=== PATIENT | female | born 1935 | race Caucasian/White ===

== ENCOUNTER 2018-08-02 18:14 | Inpatient (IN) | payer MEDICARE, OTHER ==
--- NOTE | 2018-08-02 18:42 | ED ---
General Adult HPI - General Chief complaint: Neuro Symptoms/Deficit Stated complaint: TIA Symptoms Time Seen by Provider: 08/02/18 18:27 Source: patient, EMS Mode of arrival: EMS Limitations: no limitations - History of Present Illness Initial comments: Dictation was produced using Truli dictation software. please excuse any grammatical, word or spelling errors. Chief Complaint: 83-year-old female presents with strokelike symptoms History of Present Illness: 83-year-old female she had cataract surgery early this morning patient is at home with family when at approximately 5:15 she had an episode of right upper extremity numbness, slurred speech and right facial droop. EMS was called right away. Upon EMS arrival her symptoms started which was approximately 15 minutes after time of onset. Patient has history of CVA in the past. Patient states that her symptoms are improved. Family bedside reports that she is acting at baseline. The ROS documented in this emergency department record has been reviewed and confirmed by me. Those systems with pertinent positive or negative responses have been documented in the HPI. All other systems are other negative and/or noncontributory. PHYSICAL EXAM: General Impression: Alert and oriented x3, not in acute distress HEENT: Normocephalic atraumatic, extra-ocular movements intact, pupils equal and reactive to light bilaterally, mucous membranes moist. Cardiovascular: Heart regular rate and rhythm, S1&S2 audible, no murmurs, rubs or gallops Chest: Lungs clear to auscultation bilaterally, no rhonchi, no wheeze, no rales Abdomen: Bowel sounds present, abdomen soft, non-tender, non-distended, no organomegaly Musculoskeletal: Pulses present and equal in all extremities, no peripheral edema Motor: no focal deficits noted Neurological: CN II-XII grossly intact, no focal motor or sensory deficits noted Skin: Intact with no visualized rashes Psych: Normal affect and mood ED course: 83-year-old female presents with coca presentation consistent with transient ischemic attack vital signs upon arrival are within acceptable limits. Patient is well-appearing at this time. NIH of 0. Given history of present illness strong clinical suspicion that patient experienced a transient ischemic attack given the localization of her symptoms. Concerned that she has transient ischemic attack affecting the left MCA distribution. Laboratory evaluation obtained. CBC, coag panel, metabolic panel is unremarkable. Urinalysis is positive for urinary tract infection. Patient did begin reporting left CVA tenderness. There is concern of pyelonephritis. Blood cultures obtained. Patient treated with ceftriaxone. Patient given aspirin. Patient to be admitted with neurology on consultation. Discussed patient case with Dr. Smith who will be accepting the admission. EKG interpretation: Ventricular rate 72, sinus rhythm,. Interval to 4, Q 72, QTc 442. No MI prolongation, no QTC prolongation, no ST or T-wave changes noted. Overall, this EKG is unremarkable - Related Data Home Medications Medication Instructions Recorded Confirmed Apixaban [Eliquis] 5 mg PO BID 08/02/18 08/02/18 Brimonidine Tartrate [Alphagan P 1 drop BOTH EYES BID 08/02/18 08/02/18 0.2% Ophth Soln] Cholecalciferol (Vitamin D3) 2,000 unit PO DAILY 08/02/18 08/02/18 [Vitamin D3] Dorzolamide 2% [Trusopt 2%] 1 drop BOTH EYES BID 08/02/18 08/02/18 Latanoprost Ophth [Xalatan 0.005%] 1 drop BOTH EYES HS 08/02/18 08/02/18 Losartan Potassium [Cozaar] 25 mg PO DAILY 08/02/18 08/02/18 Metoprolol Tartrate [Lopressor] 25 mg PO BID 08/02/18 08/02/18 Multivitamins, Thera [Multivitamin 1 tab PO DAILY 08/02/18 08/02/18 (formulary)] Simvastatin [Zocor] 20 mg PO HS 08/02/18 08/02/18 amLODIPine [Norvasc] 10 mg PO DAILY 08/02/18 08/02/18 metFORMIN HCL [Glucophage] 1,000 mg PO BID 08/02/18 08/02/18 Allergies Allergy/AdvReac Type Severity Reaction Status Date / Time SMITHA Inhibitors Allergy Unknown Verified 08/02/18 18:21 Review of Systems ROS Statement: Those systems with pertinent positive or pertinent negative responses have been documented in the HPI. ROS Other: All systems not noted in ROS Statement are negative. Past Medical History Past Medical History: Diabetes Mellitus, Hypertension Additional Past Medical History / Comment(s): TIAs History of Any Multi-Drug Resistant Organisms: None Reported Past Surgical History: Tubal Ligation Additional Past Surgical History / Comment(s): right cataract surgery Past Psychological History: No Psychological Hx Reported Smoking Status: Never smoker Past Alcohol Use History: None Reported Past Drug Use History: None Reported General Exam Limitations: no limitations Course Vital Signs 08/02/18 08/02/18 08/02/18 18:15 20:50 21:28 Temperature 97 F L 98 F Pulse Rate 72 65 Respiratory 18 16 Rate Blood Pressure 178/86 180/85 151/95 O2 Sat by Pulse 97 95 Oximetry Medical Decision Making - Lab Data Result diagrams: 08/02/18 18:55 08/02/18 19:54 Lab Results 08/02/18 08/02/18 08/02/18 Range/Units 18:55 18:55 18:55 WBC 7.3 (3.8-10.6) k/uL RBC 4.67 (3.80-5.40) m/uL Hgb 13.9 (11.4-16.0) gm/dL Hct 43.1 (34.0-46.0) % MCV 92.4 (80.0-100.0) fL MCH 29.9 (25.0-35.0) pg MCHC 32.3 (31.0-37.0) g/dL RDW 13.8 (11.5-15.5) % Plt Count 240 (150-450) k/uL Neutrophils % 59 % Lymphocytes % 29 % Monocytes % 6 % Eosinophils % 3 % Basophils % 1 % Neutrophils # 4.3 (1.3-7.7) k/uL Lymphocytes # 2.1 (1.0-4.8) k/uL Monocytes # 0.4 (0-1.0) k/uL Eosinophils # 0.2 (0-0.7) k/uL Basophils # 0.0 (0-0.2) k/uL PT 11.1 (9.0-12.0) sec INR 1.1 (<1.2) APTT 24.8 (22.0-30.0) sec Sodium (137-145) mmol/L Potassium (3.5-5.1) mmol/L Chloride (98-107) mmol/L Carbon Dioxide (22-30) mmol/L Anion Gap mmol/L BUN (7-17) mg/dL Creatinine (0.52-1.04) mg/dL Est GFR (CKD-EPI)AfAm (>60 ml/min/1.73 sqM) Est GFR (CKD-EPI)NonAf (>60 ml/min/1.73 sqM) Glucose (74-99) mg/dL Calcium (8.4-10.2) mg/dL Total Bilirubin (0.2-1.3) mg/dL AST (14-36) U/L ALT (9-52) U/L Alkaline Phosphatase (38-126) U/L Troponin I <0.012 (0.000-0.034) ng/mL Total Protein (6.3-8.2) g/dL Albumin (3.5-5.0) g/dL Urine Color Urine Appearance (Clear) Urine pH (5.0-8.0) Ur Specific [place] (1.001-1.035) Urine Protein (Negative) Urine Glucose (UA) (Negative) Urine Ketones (Negative) Urine Blood (Negative) Urine Nitrite (Negative) Urine Bilirubin (Negative) Urine Urobilinogen (<2.0) mg/dL Ur Leukocyte Esterase (Negative) Urine RBC (0-5) /hpf Urine WBC (0-5) /hpf Ur Squamous Epith Cells (0-4) /hpf Amorphous Sediment (None) /hpf Urine Bacteria (None) /hpf Hyaline Casts (0-2) /lpf Urine Mucus (None) /hpf 08/02/18 08/02/18 Range/Units 19:20 19:54 WBC (3.8-10.6) k/uL RBC (3.80-5.40) m/uL Hgb (11.4-16.0) gm/dL Hct (34.0-46.0) % MCV (80.0-100.0) fL MCH (25.0-35.0) pg MCHC (31.0-37.0) g/dL RDW (11.5-15.5) % Plt Count (150-450) k/uL Neutrophils % % Lymphocytes % % Monocytes % % Eosinophils % % Basophils % % Neutrophils # (1.3-7.7) k/uL Lymphocytes # (1.0-4.8) k/uL Monocytes # (0-1.0) k/uL Eosinophils # (0-0.7) k/uL Basophils # (0-0.2) k/uL PT (9.0-12.0) sec INR (<1.2) APTT (22.0-30.0) sec Sodium 137 (137-145) mmol/L Potassium 4.7 (3.5-5.1) mmol/L Chloride 108 H (98-107) mmol/L Carbon Dioxide 20 L (22-30) mmol/L Anion Gap 9 mmol/L BUN 18 H (7-17) mg/dL Creatinine 0.94 (0.52-1.04) mg/dL Est GFR (CKD-EPI)AfAm 65 (>60 ml/min/1.73 sqM) Est GFR (CKD-EPI)NonAf 56 (>60 ml/min/1.73 sqM) Glucose 132 H (74-99) mg/dL Calcium 9.9 (8.4-10.2) mg/dL Total Bilirubin 0.5 (0.2-1.3) mg/dL AST 26 (14-36) U/L ALT 9 (9-52) U/L Alkaline Phosphatase 68 (38-126) U/L Troponin I (0.000-0.034) ng/mL Total Protein 7.2 (6.3-8.2) g/dL Albumin 4.1 (3.5-5.0) g/dL Urine Color Light Yellow Urine Appearance Clear (Clear) Urine pH 5.5 (5.0-8.0) Ur Specific [place] 1.007 (1.001-1.035) Urine Protein Negative (Negative) Urine Glucose (UA) Negative (Negative) Urine Ketones Trace H (Negative) Urine Blood Negative (Negative) Urine Nitrite Positive H (Negative) Urine Bilirubin Negative (Negative) Urine Urobilinogen <2.0 (<2.0) mg/dL Ur Leukocyte Esterase Moderate H (Negative) Urine RBC 2 (0-5) /hpf Urine WBC 6 H (0-5) /hpf Ur Squamous Epith Cells <1 (0-4) /hpf Amorphous Sediment Rare H (None) /hpf Urine Bacteria Moderate H (None) /hpf Hyaline Casts 12 H (0-2) /lpf Urine Mucus Rare H (None) /hpf Disposition Clinical Impression: Transient cerebral ischemia Dis[facility] Condition: Fair Referrals: None,Stated [REFERRING] - 1-2 days Decision Time: 21:45
[2018-08-02 19:13] LABS: Basophils % (A) 1 %; Eosinophils # (A) 0.2 k/uL (0-0.7); Eosinophils % (A) 3 %; HCT 43.1 % (34.0-46.0); HGB 13.9 gm/dL (11.4-16.0); Lymphocytes # (A) 2.1 k/uL (1.0-4.8); Lymphocytes % (A) 29 %; MCH 29.9 pg (25.0-35.0); MCHC 32.3 g/dL (31.0-37.0); MCV 92.4 fL (80.0-100.0); Mean Platelet Volume 8.5; Monocytes # (A) 0.4 k/uL (0-1.0); Monocytes % (A) 6 %; Neutrophils # (A) 4.3 k/uL (1.3-7.7); Neutrophils % (A) 59 %; Platelet Count 240 k/uL (150-450); RBC 4.67 m/uL (3.80-5.40); RDW 13.8 % (11.5-15.5); WBC 7.3 k/uL (3.8-10.6)
[2018-08-02 19:17] LABS: INR 1.1 (<1.2); Partial Thromboplastin Time 24.8 sec (22.0-30.0); Prothrombin Time 11.1 sec (9.0-12.0)
[2018-08-02 19:33] LABS: Amorphous Sediment,Urine Rare /hpf; Appearance,Urine Clear (Clear); Bacteria,Urine Moderate /hpf; Bilirubin,Urine Negative (Negative); Blood,Urine Negative (Negative); Color,Urine Light Yellow; Glucose,Urine (UA) Negative (Negative); Hyaline Casts,Urine 12 /lpf (0-2); Ketones,Urine Trace (Negative); Leukocyte Esterase,Urine Moderate (Negative); Mucus,Urine Rare /hpf; Nitrite,Urine Positive (Negative); PH, Urine 5.5 (5.0-8.0); Protein,Urine Negative (Negative); RBC,Urine 2 /hpf (0-5); Specific Gravity,Urine 1.007 (1.001-1.035); Squamous Epithelial Cell,Urine <1 /hpf (0-4); Urobilinogen,Urine <2.0 mg/dL (<2.0)
--- NOTE | 2018-08-02 19:37 | XR ---
EXAMINATION TYPE: XR chest 2V DATE OF EXAM: 08/02/2018 COMPARISON: NONE HISTORY: Altered mental status TECHNIQUE: Frontal and lateral views of the chest are obtained. FINDINGS: There is no heart failure nor confluent no pneumonic infiltrate. Thoracic aorta is atherom atous. There is no pleural effusion. Bony thorax is intact. IMPRESSION: No active cardio pulmonary disease. Hiatal hernia noted.
--- NOTE | 2018-08-02 19:53 | CT ---
EXAMINATION TYPE: CT brain wo con DATE OF EXAM: 08/02/2018 COMPARISON: None HISTORY: Right sided weakness. CT DLP: 1084.4 mGycm Automated exposure control for dose reduction was used. FINDINGS: There is some white matter hypodensity in the left posterior parietal lobe that measures 3 cm. There is no mass effect nor midline shift. There is no sign of intracranial hemorrhage. Calvarium is intact . IMPRESSION: THERE IS EVIDENCE FOR SOME WHITE MATTER ISCHEMIA LEFT PARIETAL LOBE. NO HEMORRHAGE. THIS COULD BE SUB ACUTE INFARCT.
[2018-08-02 20:02] LABS: Albumin 4.1 g/dL (3.5-5.0); Calcium 9.9 mg/dL (8.4-10.2); Potassium 4.7 mmol/L (3.5-5.1); Total Bilirubin 0.5 mg/dL (0.2-1.3); Total Protein 7.2 g/dL (6.3-8.2)
[2018-08-02] MEDS ORDERED: ASPIRIN 81 MG PO STA (21:44)
[2018-08-02 22:05] LABS: Glucose,Whole Blood 153 mg/dL (75-99)
[2018-08-02] MEDS: SODIUM CHLORIDE 0.9% 1,000 ML IV SCH (22:07)
[2018-08-02] MEDS ORDERED: amLODIPine 10 MG TAB PO ONE (23:45)
[2018-08-03 00:29] VITALS: BMI 25.2
[2018-08-03] MEDS ORDERED: cloNIDine HCL 0.1 MG TAB PO PRN (00:50)
[2018-08-03 01:29] LABS: Cholesterol 113 mg/dL (<200); HDL Cholesterol 50 mg/dL (40-60); LDL Cholesterol,Calculated 48 mg/dL (0-99); Triglycerides 73 mg/dL (<150)
[2018-08-03] MEDS: DORZOLAMIDE HCL 2% DROPS 10 ML BTL BOTH EYES SCH ×2 (09:17→20:15)
[2018-08-03] MEDS: LOSARTAN 25 MG TAB PO SCH (09:18)
[2018-08-03] MEDS: BRIMONIDINE TARTRATE 0.2% DROPS 5 ML BTL BOTH EYES SCH ×2 (09:18→20:15)
[2018-08-03] MEDS: FAMOTIDINE 20 MG TAB PO SCH (09:18)
[2018-08-03] MEDS: CHOLECALCIFEROL 1,000 UNIT TAB PO SCH (09:18)
[2018-08-03] MEDS: amLODIPine 10 MG TAB PO SCH (09:19)
[2018-08-03] MEDS: metFORMIN 500 MG TAB PO SCH ×2 (09:19→20:16)
[2018-08-03] MEDS: APIXABAN 5 MG TAB PO SCH ×2 (09:19→20:16)
[2018-08-03] MEDS: METOPROLOL TARTRATE 25 MG TAB PO SCH ×2 (09:21→20:16)
--- NOTE | 2018-08-03 12:35 | P.CNNES ---
History of Present Illness Consult date: 08/03/18 Reason for Consult: TIA History of Present Illness: Patient is an 83-year-old female, who had a laser eye surgery yesterday on her cataract, which has developed a film on it. Patient developed acute onset of slurred speech, with right arm numbness, facial droop. She was "out of it" for about 15 minutes. Her symptoms started improving and most of the symptoms resolved by the time patient arrived to the hospital. Patient's NIH stroke scale was 0, when she arrived to the hospital. Patient was not a candidate for TPA. Patient underwent computed tomography scan of the brain, which revealed evidence for some white matter ischemia, left parietal lobe. No hemorrhage. This could be subacute infarct. Chest x-ray showed no acute cardiopulmonary disease. EKG showed sinus rhythm with premature supraventricular complexes. Patient's blood tests showed normal CBC, PT/PTT, Chem-7 with BUN 18, creatinine 0.94. Liver functions are normal. Cholesterol 113, LDL 48, HDL 50. UA showed positive nitrite, moderate leukocyte esterase, moderate bacteria. Patient has history of atrial fibrillation, currently on Apixaban 5 mg twice a day. Patient denies any missing dose of Apixaban in preparation for her eye procedure. Patient also mentions that about May 2017 she is a similar TIA, in which she developed numbness of the fingers, the mouth, slurred speech, headache back of the head. She went to another hospital at that time, and she was diagnosed with atrial fibrillation, started on anticoagulation. Patient was told of moderate carotid disease at that time. Patient does not take any antiplatelet medication. Patient denies any tobacco, alcohol. Patient has diabetes for 11-12 years. Review of Systems Eyes: denies blurred vision, denies pain Ears: deny: decreased hearing Ears, nose, mouth and throat: Denies vertigo Cardiovascular: Reports irregular heart beat, Denies palpitations Respiratory: Denies wheezing Gastrointestinal: Denies hematemesis, Denies nausea, Denies vomiting Musculoskeletal: Reports arm numbness/tingling Past Medical History Past Medical History: Diabetes Mellitus, Hypertension Additional Past Medical History / Comment(s): TIAs History of Any Multi-Drug Resistant Organisms: None Reported Past Surgical History: Tubal Ligation Additional Past Surgical History / Comment(s): right cataract surgery Past Psychological History: No Psychological Hx Reported Smoking Status: Never smoker Past Alcohol Use History: None Reported Past Drug Use History: None Reported - Past Family History Mother Family Medical History: Congestive Heart Failure (CHF), Coronary Artery Disease (CAD), CVA/TIA Father Family Medical History: Unable to Obtain Medications and Allergies Home Medications Medication Instructions Recorded Confirmed Type Apixaban [Eliquis] 5 mg PO BID 08/02/18 08/02/18 History Brimonidine Tartrate [Alphagan P 1 drop BOTH EYES BID 08/02/18 08/02/18 History 0.2% Ophth Soln] Cholecalciferol (Vitamin D3) 2,000 unit PO DAILY 08/02/18 08/02/18 History [Vitamin D3] Dorzolamide 2% [Trusopt 2%] 1 drop BOTH EYES BID 08/02/18 08/02/18 History Latanoprost Ophth [Xalatan 0.005%] 1 drop BOTH EYES HS 08/02/18 08/02/18 History Losartan Potassium [Cozaar] 25 mg PO DAILY 08/02/18 08/02/18 History Metoprolol Tartrate [Lopressor] 25 mg PO BID 08/02/18 08/02/18 History Multivitamins, Thera [Multivitamin 1 tab PO DAILY 08/02/18 08/02/18 History (formulary)] Simvastatin [Zocor] 20 mg PO HS 08/02/18 08/02/18 History amLODIPine [Norvasc] 10 mg PO DAILY 08/02/18 08/02/18 History metFORMIN HCL [Glucophage] 1,000 mg PO BID 08/02/18 08/02/18 History Allergies Allergy/AdvReac Type Severity Reaction Status Date / Time SMITHA Inhibitors Allergy Unknown Verified 08/02/18 18:21 Physical Examination - Vital Signs Vital Signs: Vital Signs Temp Pulse Pulse Resp BP BP Pulse Ox 08/03/18 08:10 98.1 F 78 18 134/60 91 L 08/03/18 04:00 97.4 F L 90 16 147/77 100 08/03/18 00:00 97.6 F 80 17 197/84 94 L 08/02/18 23:32 96.9 F L 75 18 165/86 95 08/02/18 22:32 97.6 F 80 17 197/84 94 L 08/02/18 22:00 80 18 179/96 93 L 08/02/18 21:28 151/95 08/02/18 20:50 98 F 65 16 180/85 95 08/02/18 18:15 97 F L 72 18 178/86 97 Intake and Output 08/02/18 08/03/18 08/03/18 22:59 06:59 14:59 Intake Total 20 200 360 Balance 20 200 360 Intake: IV 40 Invasive Line 1 40 Intake, IV Titration 20 160 Amount Sodium Chloride 0.9% 1, 20 160 000 ml @ 20 mls/hr IV . Q24H [facility] Rx#:[id number] Oral 360 Other: Voiding Method Toilet # Voids 3 1 Weight 74.389 kg 73.3 kg On examination patient is an elderly female, in no distress. There is no obvious bruit S1 and S2 audible. Patient is alert and awake fully oriented. Her speech and language functions are normal. On cranial nerve examination, pupils are round and reacting to light. Visual rosen are full, extraocular muscles are intact. Face is symmetric and tongue protrudes to the midline. On muscle strength testing there is no pronator drift. The strength is normal in arms and legs distally and proximally. Reflexes symmetric and plantars downgoing. No ataxia for [id number], tone and bulk of muscles normal. Results - Laboratory Findings CBC and BMP: 08/02/18 18:55 08/02/18 19:54 Abnormal Lab Findings: Abnormal Labs 08/02/18 08/02/18 08/02/18 19:20 19:54 22:03 Chloride 108 H Carbon Dioxide 20 L BUN 18 H Glucose 132 H POC Glucose (mg/dL) 153 H Urine Ketones Trace H Urine Nitrite Positive H Ur Leukocyte Esterase Moderate H Urine WBC 6 H Amorphous Sediment Rare H Urine Bacteria Moderate H Hyaline Casts 12 H Urine Mucus Rare H Assessment and Plan Assessment: * Probable TIA involving left hemispheric region manifesting with transient slurred speech, right facial and brachial numbness, that now seems to have resolved. * Atrial fibrillation, on Apixaban 5 mg twice a day, compliant with medication, not missed dose. * Diabetes * Previous history of TIA in May 2017 * Carotid atherosclerotic disease * Status post eye procedure yesterday. Plan: Patient is scheduled for CTA of neck to evaluate for carotid stenosis. Patient also scheduled for 2-D echo to rule out embolic source. Patient has received aspirin 324 mg in the ER. Will continue aspirin although at lower dose 81 mg daily along with Apixaban 5 mg twice a day. (Patient was not on any antiplatelet medication at home prior to arrival to ER). We will check fasting lipid panel and hemoglobin A1c. Discussed with patient and family members in detail.
--- NOTE | 2018-08-03 13:43 | P.HPIM ---
History of Present Illness H&P Date: 08/03/18 Chief Complaint: TIA/CVA, chest pain, UTI, significantly elevated blood pres sure, 83-year-old female one of Dr. Fawn Avila patient with past medical history of diabetes, hypertension, TIA, mild carotid stenosis and mild PAD who presented to the emergency department at [facility] after cataract surgery done with the film developed behind the eye require laser procedure developed to have significantly elevated blood pressure after procedure was done patient developed to have significant sign and symptom of right arm numbness facial droop with weakness in the leg as well had significant abnormal bouncing gait. Patient [facility] and within the following half-hour her symptoms resolve completely she did not have a TPA was not candidate for that the time CAT scan of the brain showed small vessel disease with no other major Bleed patient had history of A. porsha currently taking Eliquis 5 mg twice a day and doing well with that with no side effect. According to patient had similar episode in early 2017 was diagnosed as a TIA and was in [facility] at the time as the time was discover with the A. fib was started on anticoagulation has not have any symptoms since. Review of Systems CONSTITUTIONAL: Well-developed no acute respiratory distress. EYES: No icterus sclerae, no conjunctivitis. EARS, NOSE, MOUTH, THROAT, and FACE: No sore throat, lymphadenopathy, carotid bruits or deformity. RESPIRATORY: No SOB cough or wheezes. CARDIOVASCULAR: A. fib with PND orthopnea. GASTROINTESTINAL: No Abd pain, Nausea or vomiting, no Diarrhea or constipation, No GI Bleed, no distention or masses. GENITOURINARY: Negative for Hematuria or UTI, no kidney stones. INTEGUMENT/BREAST: Negative for any muscular injury with mild osteoarthritis.. HEMATOLOGIC/LYMPHATIC: Negative for bleed or purpura. MUSCULOSKELTAL: Negative for Myalgia or arthralgia. NEURLOGICAL: Positive blurred vision slight numbness and weakness in the right side. BEHAVIORAL/PSYCH: Negative. ENDOCRINE: Negative. Past Medical History Past Medical History: Diabetes Mellitus, Hypertension Additional Past Medical History / Comment(s): TIAs History of Any Multi-Drug Resistant Organisms: None Reported Past Surgical History: Tubal Ligation Additional Past Surgical History / Comment(s): right cataract surgery Past Psychological History: No Psychological Hx Reported Smoking Status: Never smoker Past Alcohol Use History: None Reported Past Drug Use History: None Reported - Past Family History Mother Family Medical History: Congestive Heart Failure (CHF), Coronary Artery Disease (CAD), CVA/TIA Father Family Medical History: Unable to Obtain Medications and Allergies Home Medications Medication Instructions Recorded Confirmed Type Apixaban [Eliquis] 5 mg PO BID 08/02/18 08/02/18 History Brimonidine Tartrate [Alphagan P 1 drop BOTH EYES BID 08/02/18 08/02/18 History 0.2% Ophth Soln] Cholecalciferol (Vitamin D3) 2,000 unit PO DAILY 08/02/18 08/02/18 History [Vitamin D3] Dorzolamide 2% [Trusopt 2%] 1 drop BOTH EYES BID 08/02/18 08/02/18 History Latanoprost Ophth [Xalatan 0.005%] 1 drop BOTH EYES HS 08/02/18 08/02/18 History Losartan Potassium [Cozaar] 25 mg PO DAILY 08/02/18 08/02/18 History Metoprolol Tartrate [Lopressor] 25 mg PO BID 08/02/18 08/02/18 History Multivitamins, Thera [Multivitamin 1 tab PO DAILY 08/02/18 08/02/18 History (formulary)] Simvastatin [Zocor] 20 mg PO HS 08/02/18 08/02/18 History amLODIPine [Norvasc] 10 mg PO DAILY 08/02/18 08/02/18 History metFORMIN HCL [Glucophage] 1,000 mg PO BID 08/02/18 08/02/18 History Allergies Allergy/AdvReac Type Severity Reaction Status Date / Time SMITHA Inhibitors Allergy Unknown Verified 08/02/18 18:21 Physical Exam Vitals: Vital Signs Temp Pulse Pulse Resp BP BP Pulse Ox 08/03/18 11:25 97.6 F 61 18 119/57 94 L 08/03/18 08:10 98.1 F 78 18 134/60 91 L 08/03/18 04:00 97.4 F L 90 16 147/77 100 08/03/18 00:00 97.6 F 80 17 197/84 94 L 08/02/18 23:32 96.9 F L 75 18 165/86 95 08/02/18 22:32 97.6 F 80 17 197/84 94 L 08/02/18 22:00 80 18 179/96 93 L 08/02/18 21:28 151/95 08/02/18 20:50 98 F 65 16 180/85 95 08/02/18 18:15 97 F L 72 18 178/86 97 Intake and Output 08/02/18 08/03/18 08/03/18 22:59 06:59 14:59 Intake Total 20 200 840 Balance 20 200 840 Intake: IV 40 Invasive Line 1 40 Intake, IV Titration 20 160 Amount Sodium Chloride 0.9% 1, 20 160 000 ml @ 20 mls/hr IV . Q24H [facility] Rx#:[id number] Oral 840 Other: Voiding Method Toilet # Voids 3 1 Weight 74.389 kg 73.3 kg General Appearance: Alert, cooperative, no distress, appears stated age. Neck HEENT: Supple, no lymphadenopathy, no thyroid enlargement, no carotid bruits. Lungs: Clear to auscultation without crackles or wheezes no rhonchi, no deformity. Chest Wall: Chest wall normal expansion with deep inspiration no tenderness and no deformity was found on exam, no costochondral pain or discomfort. Heart: Irregular rate and rhythm, S1, S2 positive S3 positive systolic murmur, no rub or gallop. Back: Symmetric, no curvature, ROM normal, no CVA tenderness. Abdomen: Soft, non-tender, bowel sounds active all four quadrants, no masses, no organomegaly. Extremities: Extremities normal, atraumatic, no cyanosis or edema. Pulses: 2+ and symmetric. Skin: Skin color, texture, tugor normal, no rashes or lesions. Neurologic: Alert oriented x3 cranial nerves II through XII intact, positive slight weakness in the right side compared to left side with slight lack of sensation or decreased sensation mostly especially in the upper extremity. Positive normal balance and gait. Results CBC & Chem 7: 08/02/18 18:55 08/02/18 19:54 Labs: Abnormal Lab Results - Last 24 Hours (Table) 08/02/18 08/02/18 08/02/18 Range/Units 19:20 19:54 22:03 Chloride 108 H (98-107) mmol/L Carbon Dioxide 20 L (22-30) mmol/L BUN 18 H (7-17) mg/dL Glucose 132 H (74-99) mg/dL POC Glucose (mg/dL) 153 H (75-99) mg/dL Urine Ketones Trace H (Negative) Urine Nitrite Positive H (Negative) Ur Leukocyte Esterase Moderate H (Negative) Urine WBC 6 H (0-5) /hpf Amorphous Sediment Rare H (None) /hpf Urine Bacteria Moderate H (None) /hpf Hyaline Casts 12 H (0-2) /lpf Urine Mucus Rare H (None) /hpf Microbiology - Last 24 Hours (Table) 08/02/18 19:20 Urine Culture - Preliminary Urine,Voided Thrombosis Risk Factor Assmnt - DVT/VTE Prophylaxis DVT/VTE Prophylaxis: Pharmacologic Prophylaxis ordered, Mechanical Prophylaxis ordered - Choose All That Apply Any of the Below Risk Factors Present?: Yes Each Factor Represents 1 point: Obesity (BMI >25) Other Risk Factors: Yes Each Risk Factor Represents 3 Points: Age 75 years or older Other congenital or acquired thrombophilia - If yes, enter type in comment: Yes Each Risk Factor Represents 5 Points: Stroke (< 1 month) Thrombosis Risk Factor Assessment Total Risk Factor Score: 9 Thrombosis Risk Factor Assessment Level: High Risk Assessment and Plan Plan: 1 TIA/CVA: With patient's current symptoms patient be seen urology admit patient to the hospital start neuro exam every 2-4 hours through the night, continue anticoagulation, echo and carotid or order patient might need to go for further testing including an MRI of the brain with MRA. 2 chest pain: Atypical patient will have cardiology consult and echocardiogram and depend if there is no chest wall abnormality no elevated troponin will continue to treat medically at this point. UTI with positive UA was asymptomatic early patient will have 1 g of Rocephin and switched to Ceftin orally. 4 urgent hypertension: Blood pressure has not been well controlled despite being on amlodipine 10 mg a day clonidine 0.1 mg 3 times a day losartan 25 mg daily and metoprolol 25 mg twice a day will titrate losartan if needed and add hydralazine 50 mg 3 times a day for systolic above 160. 5 A. fib with RVR: Patient is still on anticoagulation still on metoprolol pulse rates under control currently. 6 hyperglycemia/type 2 diabetes: Has been doing well on metformin 1000 mg twice a day continue Accu-Chek with sliding scales coverage. 7 hyperlipidemia: Remain on atorvastatin 10 mg a day. 8 post cataract surgery with membrane developed behind the eye post laser procedure has been doing very well so far. 9 carotid stenosis: Patient has been seen vascular regular basis carotid ultrasound be done this time if any significant change might do CTA of the neck. GI prophylaxis: Patient will be on Pepcid 20 mg daily. DVT prophylaxis: Is already on anticoagulation. CODE STATUS: DO NOT RESUSCITATE. Admit patient to inpatient status for more than 2 nights.
[2018-08-03] MEDS: ASPIRIN 81 MG PO SCH (15:28)
--- NOTE | 2018-08-03 17:57 | CONS ---
CONSULTATION Mrs. Castellanos is an 83-year-old female known history of hypertension, history of paroxysmal atrial fibrillation, hyperlipidemia, who presented to the hospital with slurred speech and right side upper extremity numbness. The patient had recent eye surgery and after going home while in the car. She felt those feelings that lasted for about 15 minutes and then came into the emergency room. She is back to her baseline. She has been followed by specialist employee labor relations at [place] and has been told that she had paroxysmal atrial fibrillation in 2018 following cerebrovascular accident that was in the similar distribution. Her symptoms subsequently resolved and she had no recurrence. She is reasonably active physically, has no other cardiac issue. She denies any history of congestive heart failure or myocardial infarction. She denies any chest discomfort usually, but yesterday when she had the numbness, she felt a little bit of discomfort that subsequently resolved. She denies any palpitation. She is not aware when she is in atrial fibrillation. She has no history of PND, orthopnea. No peripheral edema. No syncope. Her coronary risk factors are remarkable for diabetes, hypertension, hyperlipidemia. MEDICATION: Include: Glucophage 1 gram twice a day, amlodipine 10 mg daily, simvastatin 20 mg daily, metoprolol tartrate 25 mg twice a day, losartan 25 mg daily, eye drops, vitamin D and Eliquis 5 mg twice a day. REVIEW OF SYSTEMS: RESPIRATORY system: She has no documented history of asthma or emphysema. No bronchitis. No wheezing. No cough. GI system: No recent GI bleeding. No peptic ulcer disease. system: No dysuria or hematuria. NERVOUS SYSTEM: No history of seizure. She had a prior stroke. PHYSICAL EXAMINATION: She is an 83-year-old female, alert, oriented, in no apparent distress. Blood pressure 119/50 with a heart rate in 60s. HEAD: Normocephalic. Eyes: Sclerae nonicteric. NECK: Good upstroke. No bruit. No jugular venous distention. LUNGS: Clear to auscultation. HEART: Regular rate and rhythm S1, S2. No S3 with a systolic murmur at the base. No diastolic murmur. No rub. ABDOMEN: Soft, nontender. Positive bowel sounds. No organomegaly. EXTREMITIES: No edema. Intact distal pulses. LAB DATA: Hemoglobin 13.9. BUN and creatinine 18 and 0.94. Troponin less than 0.012. Cholesterol 113, LDL of 48. EKG reveals sinus mechanism with normal axis and intervals with minor nonspecific ST-T wave changes. No evidence of atrial fibrillation on the telemetry. CT scan of the head shows white matter ischemic changes on the left parietal lobe, but no hemorrhage. Chest x-ray shows no acute infiltrate with a hiatal hernia. IMPRESSION: 1. Transient ischemic attack, resolved. 2. Paroxysmal atrial fibrillation remains in sinus mechanism. 3. Hypertension. 4. Hyperlipidemia. 5. Diabetes mellitus. RECOMMENDATION: From the cardiac standpoint, I will obtain an echocardiogram with Doppler. The patient has been anticoagulated and has not stopped her anticoagulation at the time of her surgical intervention. She was seen by Neurology who has recommended adding a antiplatelets regimen in the form of aspirin 81 mg daily. Her chest discomfort does not appear to be ischemic in etiology. We continue observation. If she has no further symptoms and her echo shows no changes, then no further cardiac workup will be needed at this time and she can follow up with her primary specialist employee labor relations on a regular basis. Thank you for this consult. We will follow with you. MMODL / IJN: [id number] /
[2018-08-03] MEDS: SODIUM CHLORIDE 0.9% 1,000 ML IV SCH (20:18)
[2018-08-03] MEDS ORDERED: LATANOPROST 0.005% OPHTH DROPS 2.5 ML BTL BOTH EYES SCH (21:00)
[2018-08-03] MEDS ORDERED: ATORVASTATIN 10 MG TAB PO SCH (21:00)
[2018-08-03] MEDS ORDERED: ASPIRIN 325 MG TAB PO SCH (21:48)
[2018-08-04 06:24] LABS: Basophils % (A) 1 %; Eosinophils # (A) 0.3 k/uL (0-0.7); Eosinophils % (A) 5 %; HCT 43.3 % (34.0-46.0); HGB 13.4 gm/dL (11.4-16.0); Lymphocytes # (A) 1.5 k/uL (1.0-4.8); Lymphocytes % (A) 29 %; MCV 93.7 fL (80.0-100.0); Mean Platelet Volume 8.4; Monocytes # (A) 0.3 k/uL (0-1.0); Monocytes % (A) 6 %; Neutrophils % (A) 57 %; Platelet Count 241 k/uL (150-450); RBC 4.62 m/uL (3.80-5.40); RDW 12.8 % (11.5-15.5); WBC 5.2 k/uL (3.8-10.6)
[2018-08-04 06:33] LABS: ALT 18 U/L (9-52); AST 19 U/L (14-36); Albumin 3.5 g/dL (3.5-5.0); Alkaline Phosphatase 55 U/L (38-126); Anion Gap 6 mmol/L; Blood Urea Nitrogen 14 mg/dL (7-17); Calcium 9.5 mg/dL (8.4-10.2); Carbon Dioxide 23 mmol/L (22-30); Chloride 108 mmol/L (98-107); Cholesterol 110 mg/dL (<200); Glucose 151 mg/dL (74-99); HDL Cholesterol 50 mg/dL (40-60); LDL Cholesterol,Calculated 45 mg/dL (0-99); Potassium 4.4 mmol/L (3.5-5.1); Sodium 137 mmol/L (137-145); Total Bilirubin 0.8 mg/dL (0.2-1.3); Total Protein 6.2 g/dL (6.3-8.2); Triglycerides 77 mg/dL (<150)
--- NOTE | 2018-08-04 07:58 | ECHOF ---
Referral Reason:lvfunction MEASUREMENTS -------- HEIGHT: 170.2 cm WEIGHT: 73.0 kg BP: 134/60 RVIDd: 2.7 cm (< 3.3) IVSd: 1.3 cm (0.6 - 1.1) LVIDd: 2.6 cm (3.9 - 5.3) LVPWd: 1.2 cm (0.6 - 1.1) IVSs: 1.6 cm LVIDs: 1.8 cm LVPWs: 1.7 cm LA Diam: 2.3 cm (2.7 - 3.8) LAESV Index (A-L): 15.81 ml/m Ao Diam: 3.4 cm (2.0 - 3.7) AV Cusp: 2.0 cm (1.5 - 2.6) MV EXCURSION: 15.358 mm (> 18.000) MV EF SLOPE: 22 mm/s (70 - 150) EPSS: 0.4 cm MV E Artie: 0.66 m/s MV DecT: 300 ms MV A Artie: 0.97 m/s MV E/A Ratio: 0.68 RAP: 5.00 mmHg RVSP: 26.68 mmHg FINDINGS -------- Sinus rhythm. This was a technically adequate study. The left ventricular size is normal. There is mild concentric left ventricular hypertrophy. Overa ll left ventricular systolic function is normal with, an EF between 60 - 65 %. The right ventricle is normal in size. Normal LA size by volume 22+/-6 ml/m2. The right atrium is normal in size. Interatrial and interventricular septum intact. The aortic valve is trileaflet and appears structurally normal. The mitral valve is normal. Mild tricuspid regurgitation present. Right ventricular systolic pressure is normal at < 35 mmHg. There is no pulmonic regurgitation present. The aortic root size is normal. Normal inferior vena cava with normal inspiratory collapse consistent with estimated right atrial pre ssure of 5 mmHg. There is no pericardial effusion. CONCLUSIONS -------- 1. Sinus rhythm. 2. This was a technically adequate study. 3. The left ventricular size is normal. 4. There is mild concentric left ventricular hypertrophy. 5. Overall left ventricular systolic function is normal with, an EF between 60 - 65 %. 6. The right ventricle is normal in size. 7. Normal LA size by volume 22+/-6 ml/m2. 8. The right atrium is normal in size. 9. Interatrial and interventricular septum intact. 10. The aortic valve is trileaflet and appears structurally normal. 11. The mitral valve is normal. 12. Mild tricuspid regurgitation present. 13. Right ventricular systolic pressure is normal at < 35 mmHg. 14. There is no pulmonic regurgitation present. 15. The aortic root size is normal. 16. Normal inferior vena cava with normal inspiratory collapse consistent with estimated right atrial pressure of 5 mmHg. 17. There is no pericardial effusion. VICE PRESIDENT [employer]PORATE COMMUNICATIONS: Patsy Vo RDCS
[2018-08-04] MEDS: metFORMIN 500 MG TAB PO SCH (08:56)
[2018-08-04] MEDS: CHOLECALCIFEROL 1,000 UNIT TAB PO SCH (08:56)
[2018-08-04] MEDS: LOSARTAN 25 MG TAB PO SCH (08:57)
[2018-08-04] MEDS: ASPIRIN 81 MG PO SCH (08:57)
[2018-08-04] MEDS: amLODIPine 10 MG TAB PO SCH (08:57)
[2018-08-04] MEDS: METOPROLOL TARTRATE 25 MG TAB PO SCH (08:57)
[2018-08-04] MEDS: FAMOTIDINE 20 MG TAB PO SCH (08:57)
[2018-08-04] MEDS: APIXABAN 5 MG TAB PO SCH (08:57)
[2018-08-04] MEDS: DORZOLAMIDE HCL 2% DROPS 10 ML BTL BOTH EYES SCH (08:59)
[2018-08-04] MEDS: BRIMONIDINE TARTRATE 0.2% DROPS 5 ML BTL BOTH EYES SCH (08:59)
[2018-08-04 12:33] VITALS: TEMP 97.8
--- NOTE | 2018-08-04 13:09 | P.PN ---
Subjective Progress Note Date: 08/04/18 No new complaints. Feels fine. Having lunch, family members present. Objective - Vital Signs Vital signs: Vital Signs Temp 97.8 F 08/04/18 12:00 Pulse 67 08/04/18 12:00 Resp 15 08/04/18 12:00 BP 128/61 08/04/18 08:00 Pulse Ox 96 08/04/18 12:00 Intake & Output 08/03/18 08/04/18 08/04/18 18:59 06:59 18:59 Intake Total 1540 30 480 Output Total 250 Balance 1540 -220 480 Weight 73.6 kg Intake: IV 30 Invasive Line 1 30 Intake, IV Titration 160 Amount Sodium Chloride 0.9% 1, 160 000 ml @ 20 mls/hr IV . Q24H [facility] Rx#:[id number] Oral 1380 480 Output: Urine 250 Other: Voiding Method Toilet # Voids 1 1 - Exam No change. Nonfocal. - Labs CBC & Chem 7: 08/04/18 05:56 08/04/18 05:56 Labs: Abnormal Lab Results - Last 24 Hours (Table) 08/04/18 Range/Units 05:56 Chloride 108 H (98-107) mmol/L Glucose 151 H (74-99) mg/dL Total Protein 6.2 L (6.3-8.2) g/dL Microbiology - Last 24 Hours (Table) 08/03/18 17:55 Urine Culture - Preliminary Urine,Clean Catch 08/02/18 21:50 Blood Culture - Preliminary Blood No Growth after 24 hours 08/02/18 19:20 Urine Culture - Preliminary Urine,Voided Gram Neg Bacilli Assessment and Plan Assessment: * Probable TIA involving left hemispheric region manifesting with transient slurred speech, right facial and brachial numbness, that now seems to have resolved. * Atrial fibrillation, on Apixaban 5 mg twice a day, compliant with medication, not missed dose. * Diabetes * Previous history of TIA in May 2017 * Carotid atherosclerotic disease * Acute UTI, and the urine going gram-negative bacilli. * Status post eye procedure yesterday. Plan: * CTA of neck showed no hemodynamically significant stenosis, dissection or aneurysmal outpouching of the major arterial vasculature of the neck. Minimal luminal nonhemodynamically significant stenosis of the carotid bulbs, left greater than right.. * 2-D echo showed ejection fraction 60-65%. No embolic source. * Continue aspirin 81 mg daily along with Apixaban 5 mg twice a day. (Patient was not on any antiplatelet medication at home prior to arrival to ER). * Fasting lipid panel showed cholesterol 110, LDL 45, HDL 50. Continue Lipitor 10 mg. * Hemoglobin A1c 7.6. Suggest optimizing control of diabetes to target A1c <7.0.. * Patient has UTI, with urine growing gram-negative bacilli. Patient will be started on antibiotics as per internal medicine. * Discussed with patient and family members in detail.
--- NOTE | 2018-08-04 14:10 | P.PN ---
Subjective Progress Note Date: 08/04/18 This is an 83-year-old female with history of hypertension, paroxysmal atrial fibrillation, hyperlipidemia, who presented to the hospital with symptoms of slurring of speech and right upper extremity numbness and weakness. For this reason the patient came to the hospital for further evaluation and treatment. Patient has a known history of paroxysmal atrial fibrillation followed by a CVA. She follows with a school photographer in [place]. She is stable. Remaining in normal sinus rhythm. Echocardiogram with Doppler study was performed which revealed an ejection fraction to 65%. Overall the patient feels well today, blood pressure 125/60 with a heart rate in the 60s, 96% on room air. White blood cell count 5.2, hemoglobin 13.4, platelet count 241. Sodium 137, potassium 4.4, BUN 14 and creatinine 0.6. Objective - Vital Signs Vital signs: Vital Signs Temp 97.8 F 08/04/18 12:00 Pulse 67 08/04/18 12:00 Resp 15 08/04/18 12:00 BP 125/61 08/04/18 12:00 Pulse Ox 96 08/04/18 12:00 Intake & Output 08/03/18 08/04/18 08/04/18 18:59 06:59 18:59 Intake Total 1540 30 720 Output Total 250 Balance 1540 -220 720 Weight 73.6 kg Intake: IV 30 Invasive Line 1 30 Intake, IV Titration 160 Amount Sodium Chloride 0.9% 1, 160 000 ml @ 20 mls/hr IV . Q24H [facility] Rx#:[id number] Oral 1380 720 Output: Urine 250 Other: Voiding Method Toilet Toilet # Voids 1 1 - Exam PHYSICAL EXAMINATION: GENERAL: 83-year-old female in no acute distress at the time of my examination HEENT: Head is atraumatic, normocephalic. Pupils equal, round. Sclera anicteric. Conjunctiva are clear. Mucous membranes of the mouth are moist. Neck is supple. There is no elevated jugular venous pressure. No carotid bruit is heard. HEART EXAMINATION: S1 S2 1 systolic murmur is heard CHEST EXAMINATION: Lungs are clear to auscultation and precussion. No chest wall tenderness is noted on palpation or with deep breathing. ABDOMEN: Soft, nontender. Bowel sounds are heard. No organomegaly noted. EXTREMITIES: 2+ peripheral pulses with no evidence of peripheral edema and no calf tenderness noted. NEUROLOGIC patient is awake, alert and oriented 3 . . - Labs CBC & Chem 7: 08/04/18 05:56 08/04/18 05:56 Labs: Abnormal Lab Results - Last 24 Hours (Table) 08/04/18 Range/Units 05:56 Chloride 108 H (98-107) mmol/L Glucose 151 H (74-99) mg/dL Total Protein 6.2 L (6.3-8.2) g/dL Microbiology - Last 24 Hours (Table) 08/03/18 17:55 Urine Culture - Preliminary Urine,Clean Catch 08/02/18 21:50 Blood Culture - Preliminary Blood No Growth after 24 hours 08/02/18 19:20 Urine Culture - Preliminary Urine,Voided Gram Neg Bacilli Assessment and Plan Plan: Assessment and plan #1 TIA, resolved #2 paroxysmal atrial fibrillation remaining in normal sinus rhythm #3 hypertension #4 hyperlipidemia #5 diabetes Plan From cardiology's perspective, patient may be able to be discharged home once cleared by primary. She's been advised to follow-up with her school photographer in [place] on discharge. DNP note has been reviewed, I agree with a documented findings and plan of care. Patient was seen and examined.
--- NOTE | 2018-08-04 15:14 | CT ---
EXAMINATION TYPE: CT angio neck DATE OF EXAM: 08/04/2018 HISTORY: TIA COMPARISON: CT brain dated 08/02/2018 CT DLP: 289.8 mGycm. Automated Exposure Control for Dose Reduction was Utilized. TECHNIQUE: CTA scan of the neck is performed without and with IV Contrast, patient injected with 65 ml mL of Isovue 370, axial images are obtained, coronal and sagittal reformatted images are reviewed. Three-D reconstructed images are created on an independent workstation and reviewed. FINDINGS: Carotid/Vascular Structures: There is a conventional three-vessel branch pattern of the aortic arch. There is mild noncalcific and minimal calcific atherosclerosis of the carotid bulbs without hemodynam ically significant stenosis, left slightly greater than right. The cervical portions of the internal carotid arteries are patent without hemodynamically significant stenosis. The vertebral arteries are patent and codominant without significant stenosis. Other: Scattered groundglass opacities are geographic in the lung apices and may relate to interstiti al edema. Moderate degenerative changes of the visualized cervical thoracic spine are seen. There is complete opacification of the left maxillary sinus with mucoperiosteal thickening bilaterally indicat ing acute on chronic paranasal sinus disease. However there is erosion of the medial wall of the left maxillary sinus concerning for aggressive component this extends into the neural pharynx and direct visualization is recommended. There is heterogeneity of the thyroid gland with right approximately 1. 2 cm nodule. Thyroid ultrasound could be considered. IMPRESSION: 1. No hemodynamically significant stenosis, dissection or aneurysmal outpouching of the major arteria l vasculature of the neck. Minimal luminal nonhemodynamically significant stenosis of the carotid bul bs, left greater than right. 2. 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 This extends into the narrow pharynx and direct visualization is recommended.
[2018-08-04 15:57] LABS: Hemoglobin A1C 7.6 % (4.0-6.0)
[2018-08-04 16:30] VITALS: BP 134/91; PULSE 70; RESP 16
--- NOTE | 2018-08-06 13:56 | P.DS ---
Providers Date of admission: 08/02/18 21:46 Expected date of discharge: 08/04/18 Attending physician: Sixto Calixto Consults: 08/02/18 21:47 Consult Physician Routine Consulting Provider: Subhash Washington Consult Reason/Comments: tia Do you want consulting provider notified?: Yes 08/03/18 11:12 Consult Physician Routine Consulting Provider: Nina Ibarra Consult Reason/Comments: CP Do you want consulting provider notified?: Yes Primary care physician: Fawn Rincon Hospital Course: 83-year-old female one of Dr. Fawn Rincon patient with past medical history of diabetes, hypertension, TIA, mild carotid stenosis and mild PAD who presented to the emergency department at [facility] after cataract surgery done with the film developed behind the eye require laser procedure developed to have significantly elevated blood pressure after procedure was done patient developed to have significant sign and symptom of right arm numbness facial droop with weakness in the leg as well had significant abnormal bouncing gait. Patient presented to [facility] and within the following half-hour her symptoms resolve completely she did not have a TPA was not candidate for that the time CAT scan of the brain showed small vessel disease with no other major Bleed patient had history of A. fib currently taking Eliquis 5 mg twice a day and doing well with that with no side effect. According to patient had similar episode in early 2017 was diagnosed as a TIA and was in [facility] at the time as the time was discover with the A. fib was started on anticoagulation has not have any symptoms since. 08/04: Patient has been seen by neurology for probable TIA in the left hemispheric region which all symptoms have resolved. Echocardiogram read field EF of 60-65%. CTA of the neck showed no hemodynamically significant stenosis, dissection or aneurysmal outpouching of the major arterial vascular in the neck. Minimal luminal nonhemodynamically significant stenosis of the carotid bulbs, left greater than right. Hemoglobin A1c 7.6. Recommendations from neurology was to continue aspirin 81 mg daily and eliquis 5 mg twice daily. Patient has been seen by cardiology and was cleared for discharge with follow-up with her chief of anesthesiology in [place]. Patient denies any new complaints. Symptoms have completely resolved. Urine culture is positive for pansensitive E. coli and patient will be discharged on Ceftin. Patient will be discharged home today in stable condition. Discharge diagnoses: 1 TIA 2 chest pain: Atypical 3 UTI 4 urgent hypertension 5 paroxysmal atrial fibrillation currently in a normal sinus rhythm 6 type 2 diabetes 7 hyperlipidemia 8 post cataract surgery with membrane developed behind the eye post laser procedure 9 carotid stenosis Discharge plan: Home Impression and plan of care have been directed as dictated by the signing physician. Jodi Morales nurse practitioner acting as scribe for signing physician. Patient Condition at Discharge: Good Plan - Discharge Summary Discharge Rx Participant: No New Discharge Prescriptions: New Cefuroxime [Ceftin] 250 mg PO BID #10 tablet Aspirin 81 mg PO DAILY chew Continue Dorzolamide 2% [Trusopt 2%] 1 drop BOTH EYES BID Brimonidine Tartrate [Alphagan P 0.2% Ophth Soln] 1 drop BOTH EYES BID Multivitamins, Thera [Multivitamin (formulary)] 1 tab PO DAILY Metoprolol Tartrate [Lopressor] 25 mg PO BID Cholecalciferol (Vitamin D3) [Vitamin D3] 2,000 unit PO DAILY Apixaban [Eliquis] 5 mg PO BID Simvastatin [Zocor] 20 mg PO HS Losartan Potassium [Cozaar] 25 mg PO DAILY metFORMIN HCL [Glucophage] 1,000 mg PO BID amLODIPine [Norvasc] 10 mg PO DAILY Latanoprost Ophth [Xalatan 0.005%] 1 drop BOTH EYES HS Discharge Medication List Apixaban [Eliquis] 5 mg PO BID 08/02/18 [History] Brimonidine Tartrate [Alphagan P 0.2% Ophth Soln] 1 drop BOTH EYES BID 08/02/18 [History] Cholecalciferol (Vitamin D3) [Vitamin D3] 2,000 unit PO DAILY 08/02/18 [History] Dorzolamide 2% [Trusopt 2%] 1 drop BOTH EYES BID 08/02/18 [History] Latanoprost Ophth [Xalatan 0.005%] 1 drop BOTH EYES HS 08/02/18 [History] Losartan Potassium [Cozaar] 25 mg PO DAILY 08/02/18 [History] Metoprolol Tartrate [Lopressor] 25 mg PO BID 08/02/18 [History] Multivitamins, Thera [Multivitamin (formulary)] 1 tab PO DAILY 08/02/18 [History] Simvastatin [Zocor] 20 mg PO HS 08/02/18 [History] amLODIPine [Norvasc] 10 mg PO DAILY 08/02/18 [History] metFORMIN HCL [Glucophage] 1,000 mg PO BID 08/02/18 [History] Aspirin 81 mg PO DAILY chew 08/04/18 [Rx] Cefuroxime [Ceftin] 250 mg PO BID #10 tablet 08/04/18 [Rx] Follow up Appointment(s)/Referral(s): cardiology, [Other] - 1 Week (Please follow up with your chief of anesthesiology) Fawn Rincon MD [Primary Care Provider] - 08/06/18 10:30 am (Thursday -no appointment available in [facility]) Pedrito Ruff MD [STAFF PHYSICIAN] - 08/11/18 9:30 am Subhash Washington MD [STAFF PHYSICIAN] - As Needed Patient Instructions/Handouts: Transient Ischemic Attack (DC) Discharge Disposition: HOME SELF-CARE
== END 2018-08-04 16:57 | disposition home or self-care (01) | DRG 69 ==
LOC: EC 18:14 → 3SCARD 21:46
PROVIDERS: ADMIT Internal Medicine Geriatric Medicine; ATTEND Internal Medicine Geriatric Medicine
DX: G45.9 Transient cerebral ischemic attack, unspecified (principal); N39.0 Urinary tract infection, site not specified; H26.9 Unspecified cataract; R29.700 NIHSS score 0; E78.5 Hyperlipidemia, unspecified; I10 Essential (primary) hypertension; I48.0 Paroxysmal atrial fibrillation; I49.1 Atrial premature depolarization; B96.20 Unspecified Escherichia coli [E. coli] as the cause of diseases classified elsewhere; R29.810 Facial weakness; Z66 Do not resuscitate; Z79.01 Long term (current) use of anticoagulants; Z79.84 Long term (current) use of oral hypoglycemic drugs; Z79.899 Other long term (current) drug therapy; Z82.49 Family history of ischemic heart disease and other diseases of the circulatory system; Z86.73 Personal history of transient ischemic attack (TIA), and cerebral infarction without residual deficits; Z98.41 Cataract extraction status, right eye; R26.9 Unspecified abnormalities of gait and mobility; R07.89 Other chest pain; E11.42 Type 2 diabetes mellitus with diabetic polyneuropathy; E11.65 Type 2 diabetes mellitus with hyperglycemia
CPT/HCPCS: 36415; 70450; 70498; 71046; 80053; 80061; 81001; 83036; 84484; 85025; 85610; 85730; 87040; 87077; 87086; 87186; 93005; 93306; 96365; 99285

== ENCOUNTER 2020-04-29 04:46 | Inpatient (IN) | payer MEDICARE, OTHER ==
--- NOTE | 2020-04-29 05:45 | ED ---
Recheck HPI - General Chief Complaint: ENT Stated Complaint: throat swelling Time Seen by Provider: 04/29/20 05:01 Source: patient, EMS, RN notes reviewed, old records reviewed Mode of arrival: EMS Limitations: no limitations - History of Present Illness Initial Comments: This is a 5-year-old female who presents today for evaluation of sore throat patient is in our ER is accepted in transfer patient for evaluation of retropharyngeal cellulitis. Patient denies being febrile with states that she is had edema and swelling of her neck that she notices more when she eats or drinks. Concern was because patient himself had oral cancer and she was concerned that she may have the same. Patient does feel better since prior evaluation MD Complaint: needs IV antibiotics -: days(s) Returns Today for: needs IV antibiotics, persistent/worsening pain related to initial visit Symptoms Since Prior Visit: worsening pain, worsening swelling Associated Symptoms: none - Related Data Home Medications Medication Instructions Recorded Confirmed Apixaban [Eliquis] 5 mg PO BID 08/02/18 08/02/18 Brimonidine Tartrate [Alphagan P 1 drop BOTH EYES BID 08/02/18 08/02/18 0.2% Ophth Soln] Cholecalciferol (Vitamin D3) 2,000 unit PO DAILY 08/02/18 08/02/18 [Vitamin D3] Dorzolamide 2% [Trusopt 2%] 1 drop BOTH EYES BID 08/02/18 08/02/18 Latanoprost Ophth [Xalatan 0.005%] 1 drop BOTH EYES HS 08/02/18 08/02/18 Losartan Potassium [Cozaar] 25 mg PO DAILY 08/02/18 08/02/18 Metoprolol Tartrate [Lopressor] 25 mg PO BID 08/02/18 08/02/18 Multivitamins, Thera [Multivitamin 1 tab PO DAILY 08/02/18 08/02/18 (formulary)] Simvastatin [Zocor] 20 mg PO HS 08/02/18 08/02/18 amLODIPine [Norvasc] 10 mg PO DAILY 08/02/18 08/02/18 metFORMIN HCL [Glucophage] 1,000 mg PO BID 08/02/18 08/02/18 Previous Rx's Medication Instructions Recorded Aspirin 81 mg PO DAILY chew 08/04/18 Cefuroxime [Ceftin] 250 mg PO BID #10 tablet 08/04/18 Allergies Allergy/AdvReac Type Severity Reaction Status Date / Time SMITHA Inhibitors Allergy Unknown Verified 08/02/18 18:21 nystatin Allergy Swelling Verified 04/29/20 04:54 Review of Systems ROS Statement: Those systems with pertinent positive or pertinent negative responses have been documented in the HPI. ROS Other: All systems not noted in ROS Statement are negative. Past Medical History Past Medical History: Diabetes Mellitus, Hypertension Additional Past Medical History / Comment(s): TIAs History of Any Multi-Drug Resistant Organisms: None Reported Past Surgical History: Tubal Ligation Additional Past Surgical History / Comment(s): right cataract surgery Past Psychological History: No Psychological Hx Reported Past Alcohol Use History: None Reported Past Drug Use History: None Reported - Past Family History Mother Family Medical History: Congestive Heart Failure (CHF), Coronary Artery Disease (CAD), CVA/TIA Father Family Medical History: Unable to Obtain General Exam Limitations: no limitations General appearance: alert, in no apparent distress Head exam: Present: atraumatic, normocephalic, normal inspection Eye exam: Present: normal appearance, PERRL, EOMI. Absent: scleral icterus, conjunctival injection, periorbital swelling ENT exam: Present: normal exam, mucous membranes moist Neck exam: Present: normal inspection. Absent: tenderness, meningismus, lymphadenopathy Respiratory exam: Present: normal lung sounds bilaterally. Absent: respiratory distress, wheezes, rales, rhonchi, stridor Cardiovascular Exam: Present: regular rate, normal rhythm, normal heart sounds. Absent: systolic murmur, diastolic murmur, rubs, gallop, clicks GI/Abdominal exam: Present: soft, normal bowel sounds. Absent: distended, tenderness, guarding, rebound, rigid Extremities exam: Present: normal inspection, full ROM, normal capillary refill. Absent: tenderness, pedal edema, joint swelling, calf tenderness Back exam: Present: normal inspection Neurological exam: Present: alert, oriented X3, CN II-XII intact Psychiatric exam: Present: normal affect, normal mood Skin exam: Present: warm, dry, intact, normal color. Absent: rash Course Vital Signs 04/29/20 04:48 Temperature 98.1 F Pulse Rate 86 Respiratory 18 Rate Blood Pressure 182/99 O2 Sat by Pulse 94 L Oximetry - Reevaluation(s) Reevaluation #1: 04/29/20 05:55 Medical record is reviewed Reevaluation #2: 04/29/20 05:55 Transferring paperwork is reviewed 04/29/20 05:55 Spoke with transferring physician - Consultations Consultation #1: Spoke with ENT who state until patient has proven abscess they do not need to see this patient Consultation #2: Spoke [address] Dr. Gonzales agrees to admit this patient will consult infectious disease Medical Decision Making - Medical Decision Making 85 female has retropharyngeal cellulitis no noted abscess. [place] for steroids antibiotics and infectious disease consult - Radiology Data Radiology results: report reviewed (CT soft tissue neck does show retropharyngeal cellulitis) Disposition Clinical Impression: Cellulitis of pharynx Disposition: ADMITTED IP TO THIS HOSP Condition: Fair Is patient prescribed a controlled substance at d/c from ED?: No Referrals: Fawn Rincon MD [Primary Care Provider] - 1-2 days
[2020-04-29] MEDS ORDERED: NALOXONE 0.4 MG/ML 1 ML VIAL IV PRN (05:52)
[2020-04-29] MEDS ORDERED: ONDANSETRON 4 MG/2 ML VIAL IVP PRN (05:52)
[2020-04-29] MEDS ORDERED: MORPHINE SULFATE 4 MG/ML SYRINGE IV PRN (05:52)
[2020-04-29] MEDS ORDERED: AMPICILLIN-SULBACTAM 3 GM in SODIUM CHLORIDE 0.9% 100 ML IVPB STA (05:54)
[2020-04-29] MEDS ORDERED: DEXAMETHASONE SOD PHOSPHATE 10 MG/ML 1 ML VIAL IV STA (05:54)
[2020-04-29] MEDS ORDERED: LABETALOL 5 MG/ML VIAL MDV IVP STA (06:34)
[2020-04-29] MEDS ORDERED: ACETAMINOPHEN TAB 500 MG TAB PO PRN (07:51)
[2020-04-29 08:43] LABS: Albumin 4.1 g/dL (3.5-5.0); Calcium 9.7 mg/dL (8.4-10.2); Potassium 4.7 mmol/L (3.5-5.1); Total Bilirubin 0.7 mg/dL (0.2-1.3)
[2020-04-29 08:52] VITALS: RESP 16
[2020-04-29 09:06] LABS: Basophils % (A) 0 %; Eosinophils % (A) 0 %; HCT 45.9 % (34.0-46.0); HGB 14.7 gm/dL (11.4-16.0); Lymphocytes % (A) 10 %; MCH 30.3 pg (25.0-35.0); MCHC 32.1 g/dL (31.0-37.0); MCV 94.6 fL (80.0-100.0); Mean Platelet Volume 8.7; Monocytes # (A) 0.2 k/uL (0-1.0); Monocytes % (A) 2 %; Neutrophils # (A) 9.1 k/uL (1.3-7.7); Neutrophils % (A) 88 %; Platelet Count 286 k/uL (150-450); RBC 4.85 m/uL (3.80-5.40); RDW 12.8 % (11.5-15.5); WBC 10.3 k/uL (3.8-10.6)
[2020-04-29] MEDS ORDERED: DEXAMETHASONE SOD PHOSPHATE 4 MG/ML 1 ML VIAL IV SCH (12:00)
[2020-04-29] MEDS ORDERED: metFORMIN 500 MG TAB PO SCH (12:15)
[2020-04-29] MEDS ORDERED: APIXABAN 5 MG TAB PO SCH (12:15)
[2020-04-29] MEDS ORDERED: METOPROLOL TARTRATE 25 MG TAB PO SCH (12:15)
[2020-04-29] MEDS ORDERED: amLODIPine 5 MG TAB PO SCH (12:15)
[2020-04-29] MEDS ORDERED: LOSARTAN 50 MG TAB PO SCH (12:15)
[2020-04-29] MEDS ORDERED: DORZOLAMIDE-TIMOLOL 2.23%/0.68 10ML BTL BOTH EYES SCH (12:15)
[2020-04-29] MEDS ORDERED: AMPICILLIN-SULBACTAM 3 GM in SODIUM CHLORIDE 0.9% 100 ML IVPB SCH (14:00)
[2020-04-29 15:45] VITALS: BP 165/84; PULSE 78; TEMP 97.6
[2020-04-29] MEDS ORDERED: LATANOPROST 0.005% OPHTH DROPS 2.5 ML BTL BOTH EYES SCH (21:00)
[2020-04-29] MEDS ORDERED: ATORVASTATIN 10 MG TAB PO SCH (21:00)
[2020-04-29] MEDS ORDERED: ASPIRIN 81 MG PO SCH (21:00)
--- NOTE | 2020-04-30 00:04 | P.HPIM ---
History of Present Illness H&P Date: 04/29/20 Chief Complaint: Mouth swelling History of presenting complaint: This is a very pleasant 85-year-old patient of Dr. Everett Rincon. Chronic stable medical conditions include atrial fibrillation, diabetes, hypertension. Patient lives with her son Guanaco. On Thursday that is 2 days ago patient noticed him out to be settling down to be swelling some difficulty in breathing in her throat. She was taken to the local [facility]. Nose question of retropharyngeal cellulitis. She's had no fever. 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 Patient given IV Unasyn in the ER dexamethasone. Miticide I saw this patient this morning she is feeling quite back to her normal self. No swelling of the tongue no trouble swallowing. Had another son was sitting by the bedside. No shortness of breath no wheezing. There is no particular new medicine that she could relate to the presentation. Past medical history to include: Atrial fibrillation, diabetes, hypertension, TIA Social history: Does not smoke or drink alcohol. Son Guanaco lives with her. Does use a cane Physical examination: VITAL SIGNS: 98.1, 86, 18, 1 75 x 91, 94% room air GENERAL: BMI 25.4, sitting up in a chair, comfortable. EYES: Pupils equal. Conjunctiva normal. HEENT: External appearance of nose and ears normal, oral cavity-tongue, mucous membrane appears to be normal. NECK: JVD not raised; masses not palpable. HEART: First and second heart sounds are normal; no edema. LUNGS: Respiratory rate normal; clear to auscultation. ABDOMEN: Soft, nontender, liver spleen not palpable, no masses palpable. 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 NEUROLOGICAL: Cranial nerves grossly intact; no facial asymmetry, power and sensation grossly intact. LYMPHATICS: No lymph nodes palpable in the axilla and neck INVESTIGATIONS, reviewed in the clinical context: White count 10.3 hemoglobin 14.7 platelets 286 potassium 4.7 creatinine 0.76 Glucose 332 Assessment and plan: -This patient started off with no swelling discomfort in the mouth including the tongue and the pharynx and some trouble swallowing and breathing. Did receive steroids and Benadryl in bed this morning feeling back to her normal self. There is no clinical evidence of any cellulitis that was felt to be maybe present. There is no fever no white count. No tenderness of the throat. Empirically patient had been on IV Unasyn. -Atrial fibrillation, chronically on eliquis, and Lopressor -Diabetes mellitus type 2, on oral hypoglycemic -Essential hypertension on Norvasc Lopressor Cozaar Care was discussed with the patient and the son. Patient is doing well. Did tolerate some lunch. We'll discussed with ID and then patient can be discharged home. Questions were answered , Past Medical History Past Medical History: Atrial Fibrillation, Diabetes Mellitus, Hypertension Additional Past Medical History / Comment(s): TIAs History of Any Multi-Drug Resistant Organisms: None Reported Past Surgical History: Tubal Ligation Additional Past Surgical History / Comment(s): right cataract surgery Past Psychological History: No Psychological Hx Reported Smoking Status: Never smoker Past Alcohol Use History: None Reported Past Drug Use History: None Reported - Past Family History Mother Family Medical History: Congestive Heart Failure (CHF), Coronary Artery Disease (CAD), CVA/TIA Father Family Medical History: Unable to Obtain Medications and Allergies Home Medications Medication Instructions Recorded Confirmed Type Apixaban [Eliquis] 5 mg PO BID 08/02/18 04/29/20 History Cholecalciferol (Vitamin D3) 2,000 unit PO BID 08/02/18 04/29/20 History [Vitamin D3] Latanoprost Ophth [Xalatan 0.005%] 1 drop BOTH EYES HS 08/02/18 04/29/20 History Metoprolol Tartrate [Lopressor] 25 mg PO BID 08/02/18 04/29/20 History Multivitamins, Thera [Multivitamin 1 tab PO DAILY 08/02/18 04/29/20 History (formulary)] Simvastatin [Zocor] 20 mg PO HS 08/02/18 04/29/20 History metFORMIN HCL [Glucophage] 1,000 mg PO BID 08/02/18 04/29/20 History Amoxicillin/Potassium Clav 1 tab PO Q12HR 1 Days #10 tab 04/29/20 Rx [Augmentin 875-125 Tablet] Aspirin 81 mg PO HS 04/29/20 04/29/20 History Dorzolamide-Timol 2.23%/0.68% 1 drop BOTH EYES BID 04/29/20 04/29/20 History [Cosopt] Losartan [Cozaar] 50 mg PO DAILY 04/29/20 04/29/20 History amLODIPine [Norvasc] 5 mg PO DAILY 04/29/20 04/29/20 History diphenhydrAMINE [Benadryl] 25 mg PO DIRECTED PRN #20 04/29/20 Rx capsule predniSONE 0 mg PO DIRECTED #10 tab 04/29/20 Rx Allergies Allergy/AdvReac Type Severity Reaction Status Date / Time SMITHA Inhibitors Allergy Unknown Verified 04/29/20 08:42 nystatin Allergy Swelling Verified 04/29/20 08:42 Physical Exam Vitals: Vital Signs Temp Pulse Pulse Resp BP BP Pulse Ox 04/29/20 08:00 97.3 F L 82 16 162/89 91 L 04/29/20 06:52 150/85 04/29/20 06:20 82 18 175/91 95 04/29/20 04:48 98.1 F 86 18 182/99 94 L Intake and Output 04/28/20 04/29/20 04/29/20 22:59 06:59 14:59 Other: Weight 73.482 kg 73.482 kg Results CBC & Chem 7: 04/29/20 08:05 04/29/20 08:05 Labs: Abnormal Lab Results - Last 24 Hours (Table) 04/29/20 04/29/20 Range/Units 08:05 08:05 Neutrophils # 9.1 H (1.3-7.7) k/uL Sodium 135 L (137-145) mmol/L Glucose 332 H (74-99) mg/dL
--- NOTE | 2020-04-30 00:06 | P.DS ---
Providers Date of admission: 04/29/20 05:52 Expected date of discharge: 04/29/20 Attending physician: Bernardino Gonzales Consults: 04/29/20 05:52 Consult Physician Routine Consulting Provider: Estuardo Lopez Consult Reason/Comments: cellulitis Do you want consulting provider notified?: Yes 04/29/20 14:09 Consult Physician Routine Consulting Provider: Gerardo Epstein Consult Reason/Comments: pharyngeal swelling Do you want consulting provider notified?: Yes Primary care physician: Fawn Rincon [facility] Course: Chief Complaint: Mouth swelling History of presenting complaint: This is a very pleasant 85-year-old patient of Dr. Everett Rincon. Chronic stable medical conditions include atrial fibrillation, diabetes, hypertension. Patient lives with her son Guanaco. On Thursday that is 2 days ago patient noticed him out to be settling down to be swelling some difficulty in breathing in her throat. She was taken to the local [facility]. Nose question of retropharyngeal cellulitis. She's had no fever. 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 Patient given IV Unasyn in the ER dexamethasone. Miticide I saw this patient this morning she is feeling quite back to her normal self. No swelling of the tongue no trouble swallowing. Had another son was sitting by the bedside. No shortness of breath no wheezing. There is no particular new medicine that she could relate to the presentation. Symptoms are completely resolved. Discussed with the son and the patient. Patient will be discharged home on steroids Benadryl. Discussed with Dr. Lopez from [place]. Give a short course of Augmentin hemoglobin do not see any obvious evidence of cellulitis. To be the safer side. Running Rigger: Dr. Lopez from [place] Past medical history to include: Atrial fibrillation, diabetes, hypertension, TIA Social history: Does not smoke or drink alcohol. Son Guanaco lives with her. Does use a cane Physical examination: VITAL SIGNS: 98.1, 86, 18, 165/84, 94% room air GENERAL: BMI 25.4, sitting up in a chair, comfortable. EYES: Pupils equal. Conjunctiva normal. HEENT: External appearance of nose and ears normal, oral cavity-tongue, mucous membrane appears to be normal. NECK: JVD not raised; masses not palpable. HEART: First and second heart sounds are normal; no edema. LUNGS: Respiratory rate normal; clear to auscultation. ABDOMEN: Soft, nontender, liver spleen not palpable, no masses palpable. 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 INVESTIGATIONS, reviewed in the clinical context: White count 10.3 hemoglobin 14.7 platelets 286 potassium 4.7 creatinine 0.76 Glucose 332 Assessment and plan: -Acute ALLERGIC reaction-cause unknown . -Atrial fibrillation, chronically on eliquis, and Lopressor -Diabetes mellitus type 2, on oral hypoglycemic -Essential hypertension on Norvasc Lopressor Cozaar Disposition: Home , Patient Condition at Discharge: Stable Plan - Discharge Summary New Discharge Prescriptions: New Amoxicillin/Potassium Clav [Augmentin 875-125 Tablet] 1 tab PO Q12HR 1 Days #10 tab diphenhydrAMINE [Benadryl] 25 mg PO DIRECTED PRN #20 capsule PRN Reason: Allergic Reaction predniSONE 0 mg PO DIRECTED #10 tab Continue Multivitamins, Thera [Multivitamin (formulary)] 1 tab PO DAILY Metoprolol Tartrate [Lopressor] 25 mg PO BID Cholecalciferol (Vitamin D3) [Vitamin D3] 2,000 unit PO BID Apixaban [Eliquis] 5 mg PO BID Simvastatin [Zocor] 20 mg PO HS metFORMIN HCL [Glucophage] 1,000 mg PO BID Latanoprost Ophth [Xalatan 0.005%] 1 drop BOTH EYES HS amLODIPine [Norvasc] 5 mg PO DAILY Dorzolamide-Timol 2.23%/0.68% [Cosopt] 1 drop BOTH EYES BID Losartan [Cozaar] 50 mg PO DAILY Aspirin 81 mg PO HS Discharge Medication List Apixaban [Eliquis] 5 mg PO BID 08/02/18 [History] Cholecalciferol (Vitamin D3) [Vitamin D3] 2,000 unit PO BID 08/02/18 [History] Latanoprost Ophth [Xalatan 0.005%] 1 drop BOTH EYES HS 08/02/18 [History] Metoprolol Tartrate [Lopressor] 25 mg PO BID 08/02/18 [History] Multivitamins, Thera [Multivitamin (formulary)] 1 tab PO DAILY 08/02/18 [History] Simvastatin [Zocor] 20 mg PO HS 08/02/18 [History] metFORMIN HCL [Glucophage] 1,000 mg PO BID 08/02/18 [History] Amoxicillin/Potassium Clav [Augmentin 875-125 Tablet] 1 tab PO Q12HR 1 Days #10 tab 04/29/20 [Rx] Aspirin 81 mg PO HS 04/29/20 [History] Dorzolamide-Timol 2.23%/0.68% [Cosopt] 1 drop BOTH EYES BID 04/29/20 [History] Losartan [Cozaar] 50 mg PO DAILY 04/29/20 [History] amLODIPine [Norvasc] 5 mg PO DAILY 04/29/20 [History] diphenhydrAMINE [Benadryl] 25 mg PO DIRECTED PRN #20 capsule 04/29/20 [Rx] predniSONE 0 mg PO DIRECTED #10 tab 04/29/20 [Rx] Follow up Appointment(s)/Referral(s): Fawn Rincon MD [Primary Care Provider] - 1-2 days Discharge Disposition: HOME SELF-CARE
[2020-04-30] MEDS ORDERED: MULTIVITAMINS, THERA 1 EACH TAB PO SCH (09:00)
== END 2020-04-29 16:34 | disposition home or self-care (01) | DRG 916 ==
LOC: EC 04:46 → 4SSUR 05:52
PROVIDERS: ADMIT Hospitalist; ATTEND Hospitalist
DX: T78.40XA Allergy, unspecified, initial encounter (principal); E11.9 Type 2 diabetes mellitus without complications; I10 Essential (primary) hypertension; I48.91 Unspecified atrial fibrillation; Z85.819 Personal history of malignant neoplasm of unspecified site of lip, oral cavity, and pharynx; Z86.73 Personal history of transient ischemic attack (TIA), and cerebral infarction without residual deficits; Z98.41 Cataract extraction status, right eye; Z98.51 Tubal ligation status; Z79.01 Long term (current) use of anticoagulants; Z79.82 Long term (current) use of aspirin; Z79.84 Long term (current) use of oral hypoglycemic drugs; Z79.899 Other long term (current) drug therapy; Z82.49 Family history of ischemic heart disease and other diseases of the circulatory system; Z82.3 Family history of stroke; Z88.8 Allergy status to other drugs, medicaments and biological substances
CPT/HCPCS: 80053; 85025; 96365; 96375; 99285